=== PATIENT | female | born 2000 | race Caucasian/White ===

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

== ENCOUNTER 2022-03-15 16:13 | Emergency (ER) | payer OTHER ==
[2022-03-15 17:44] LABS: ALBUMIN 4.7 g/dL (3.2-5.5); ALBUMIN/GLOBULIN RATIO 1.6 (1.0-2.2); BILIRUBIN,TOTAL 0.7 mg/dL (0.2-1.0); CALCIUM 9.6 mg/dL (8.5-10.3); CREATININE 0.7 mg/dL (0.4-1.0); POTASSIUM 3.6 mmol/L (3.5-5.0); TOTAL PROTEIN 7.7 g/dL (6.7-8.2)
--- NOTE | 2022-03-15 17:53 | XRAY Report ---
PROCEDURE: Chest 1 View X-Ray INDICATIONS: Chest pain TECHNIQUE: One view of the chest was acquired. COMPARISON: None FINDINGS: Surgical changes and devices: None. Lungs and pleura: No pleural effusions or pneumothorax. Lungs are clear. Mediastinum: Mediastinal contours appear normal. Heart size is normal. Bones and chest wall: No suspicious bony lesions. Overlying soft tissues appear unremarkable. IMPRESSION: No acute cardiopulmonary disease. Reviewed by: Antonino Rinaldi MD on 03/15/2022 5:52 PM PDT Approved by: Antonino Rinaldi MD on 03/15/2022 5:52 PM PDT Station ID: [id number]
--- NOTE | 2022-03-15 18:52 | ED Physician Documentation ---
PD HPI CHEST PAIN - Stated complaint Stated Complaint: SOA/HEART RACING/SLUGGISH - Chief complaint Chief Complaint: Cardiac - History obtained from History obtained from: Patient - Additional information Additional information: Starting 2 days ago she is had intermittent chest pain. On Sunday, 2 days ago she had a twice. Yesterday 4 times. Today twice with a more severe episode later this afternoon. Each episode lasts minutes at a time. It never wakes her from sleep. Its to the left of substernal and otherwise nonradiating. It is not associated with shortness of breath, pedal edema, calf pain. She is on Nexplanon for control but no estrogens. No recent travel. Review of Systems Ten Systems: 10 systems reviewed and negative Constitutional: denies: Fever, Chills Cardiac: reports: Chest pain / pressure. denies: Palpitations Respiratory: denies: Dyspnea, Cough PD PAST MEDICAL HISTORY - Past Medical History Respiratory: Asthma - Past Surgical History Past Surgical History: No - Present Medications Home Medications: Ambulatory Orders Medication Instructions Recorded Confirmed Acetaminophen/Cod 300/30 [Tylenol 1 each PO Q4-6H PRN #10 tablet 02/04/17 #3] Albuterol 1 puffs PO DAILY 02/04/17 02/04/17 Fluticasone 44 Mcg [Flovent] 2 puffs PO BID 02/04/17 02/04/17 Montelukast [Singulair] 10 mg PO DAILY 02/04/17 02/04/17 Omeprazole 40 mg PO DAILY #30 cap 03/15/22 dilTIAZem HCL [Diltiazem 24Hr ER 120 mg PO DAILY #30 cap 03/15/22 (Xr)] - Allergies Allergies/Adverse Reactions: Allergies Allergy/AdvReac Type Severity Reaction Status Date / Time No Known Drug Allergies Allergy Verified 03/15/22 16:48 - Social History Does the pt smoke?: No Smoking Status: Never smoker Does the pt drink ETOH?: No Does the pt have substance abuse?: No PD ED PE NORMAL - Vitals Vital signs reviewed: Yes - General General: Alert and oriented X 3, No acute distress - HEENT HEENT: PERRL, EOMI - Neck Neck: Supple, no meningeal sign, No bony TTP - Cardiac Cardiac: RRR, No murmur, Other (Mild ttp l chest) - Respiratory Respiratory: No respiratory distress, Clear bilaterally - Abdomen Abdomen: Non tender - Back Back: No CVA TTP, No spinal TTP - Derm Derm: Normal color, Warm and dry - Extremities Extremities: No edema, No calf tenderness / cord - Neuro Neuro: Alert and oriented X 3, Normal speech Results - Vitals Vitals: Vital Signs - 24 hr 03/15/22 03/15/22 03/15/22 16:44 18:17 18:30 Temperature 37.0 C Heart Rate 77 82 78 Respiratory 16 18 23 Rate Blood Pressure 139/77 H 125/67 131/69 H O2 Saturation 100 99 100 Oxygen O2 Source Room air - EKG (time done) 1649 Rate: Rate (enter#) (76) Rhythm: NSR Sandy: Normal Intervals: Normal [place] QRS: Normal Ischemia: Non specific changes. No: ST elevation c/w ischemia, ST depression - Labs Labs: Laboratory Tests 03/15/22 03/15/22 17:26 17:26 Sodium 136 Potassium 3.6 Chloride 104 Carbon Dioxide 21 Anion Gap 11.0 BUN 12 Creatinine 0.7 Estimated GFR (MDRD) 107 Glucose 85 Calcium 9.6 Total Bilirubin 0.7 AST 24 ALT 18 Alkaline Phosphatase 78 Troponin I High Sens < 2.3 L Total Protein 7.7 Albumin 4.7 Globulin 3.0 Albumin/Globulin Ratio 1.6 Lipase 25 PD MEDICAL DECISION MAKING - ED course ED course: 21-year-old woman with intermittent minutes worth of chest pain that is worse when upright and after eating, no other triggers. No evidence of ischemic heart disease. My suspicion is this is esophageal spasm. Departure - Departure Disposition: 01 Home, Self Care Clinical Impression: Chest pain Qualifiers: Chest pain type: chest pain on breathing Qualified Code(s): R07.1 - Chest pain on breathing; R07.81 - Pleurodynia Condition: Good Record reviewed to determine appropriate education?: Yes Instructions: ED Chest Pain Atypical Unkn Cause Prescriptions: dilTIAZem HCL [Diltiazem 24Hr ER (Xr)] 120 mg PO DAILY #30 cap Omeprazole 40 mg PO DAILY #30 cap Comments: As discussed, the atypicality of your pain and negative work-up and the length of it would suggest that is probably esophageal spasm. I am treating for that. You should follow-up with your doctor, next available appointment. Return for new or worsening symptoms. The calcium channel richard, diltiazem, I would stop taking it after a couple of days and see if the other medication alone is sufficient. Then you can stop the second medication, the omeprazole after maybe a week and not take it again unless her symptoms recur.
[2022-03-15] MEDS ORDERED: PANTOPRAZOLE 40 MG TABLET PO STA (18:53)
[2022-03-15] MEDS ORDERED: diltiaZEM CD 120 MG CAPSULE PO STA (18:53)
[2022-03-15 19:11] VITALS: BP 125/76
== END 2022-03-15 19:11 | disposition home or self-care (01) ==
LOC: ED 16:13
DX: R07.1 Chest pain on breathing (principal)
CPT/HCPCS: 36415; 71045; 80053; 83690; 84484; 93005; 99282; 99284; A9270; 85025